=== PATIENT | male | born 2000 | race Two or more races ===

== ENCOUNTER 2023-12-14 15:33 | Emergency (ER) | payer SELFPAY ==
[~2023-12-14] VITALS: Ht 172.7 cm; Wt 89.5 kg
[2023-12-14 15:54] VITALS: BP 110/74; PULSE 72; RESP 17; O2SAT 99
== END 2023-12-14 19:04 | disposition left against medical advice (07) ==
LOC: ER 15:33
DX: R51.9 Headache, unspecified (principal); Z53.21 Procedure and treatment not carried out due to patient leaving prior to being seen by health care provider